=== PATIENT | female | born 1955 | race African-American/Black ===

== ENCOUNTER 2020-11-05 21:01 | Inpatient (IN) | payer OTHER ==
[~2020-11-05] VITALS: Ht 165.1 cm; Wt 66.2 kg
[~2020-11-05 21:01] MED LIST: ACETAMINOPHEN500 M1 PO; ATIVAN0.5 MG PO; BAYER CHEWABLE81 MG PO; CARVEDILOL12.5 MG PO; CARVEDILOL25 MG PO; CEFDINIR300 MG PO; CELEXA20 MG PO; CIPRO500 MG PO; CLARITIN10 MG PO; CLOPIDOGREL; COLACE100 MG PO; CYCLOBENZAPRINE5 MG PO; DEMADEX20 MG PO; DOXYCYCLINE 10100 MG PO; ELIQUIS5 MG PO; FAMCICLOVIR500 MG PO; FLAGYL500 MG PO; FLEXERIL; FLONASE 0.05%50 MCG NASAL; HUMALOG100 UNIT/1; HUMALOG100 UNIT/2 SUBQ; HYDROCODON-ACE1 EAC7 PO; HYDROCODONE-AP1 EAC6 PO; LANTUS; LANTUS100 UNIT/M SUBQ; LEVAQUIN 500 M500 M2 PO; LISINOPRIL20 MG PO; LOPRESSOR; LYRICA150 MG PO; LYRICA20 MG/1 ML PO; MAGOX 400400 MG PO; MYFORTIC180 MG PO; MYFORTIC360 MG PO; NOHOMEMEDICATIONS; NORCO 5-325 TA1 EAC1 PO; NORCO 5-325 TA1 EACH PO; NOVOLOG100 UNIT/1 SQ; ONDANSETRON HCL4 M2 PO; PERCOCET; PHOSLO667 MG; PLAVIX 75 MG TA75 M1 PO; PROBIOTIC1 EAC1 PO; PROGRAF1 MG PO; PROTONIX40 M1 PO; RENAVITE; SENSIPAR 30 MG30 M1; VICODIN 5-5001 EACH PO; ZOCOR40 MG PO; ZOFRAN ODT4 MG PO; ZOFRAN8 MG PO
[2020-11-05 21:03] VITALS: BP 176/80
[2020-11-05 21:20] LABS: BE(vivo) -6.2 mmol/L (-2 to +3); HCO3 20.6 mmol/L (22.0-26.0); PCO2 46.2 mmHg (35.0-45.0); PO2 90.1 mmHg (80.0-100.0); pH 7.267 (7.360-7.450); sO2 95.7 % (92.0-98.0)
--- NOTE | 2020-11-05 22:02 | NUR ---
CONTACTED [facility], PT IS A FULL CODE NURSE AT [facility] REPORTS THAT PT FAMILY HAS BEEN NOTIFIED
--- NOTE | 2020-11-05 22:28 | NUR ---
TALKED WITH DAUGHTER NORY, SHE IS DPOA, LIVES IN [place] [phone]
[2020-11-05 23:17] LABS: CALCIUM 8.9 mg/dL (8.5-10.1); CREATININE 0.9 mg/dL (0.6-1.0)
[2020-11-05 23:27] LABS: ALBUMIN 2.5 g/dL (3.4-5.0); DIRECT BILIRUBIN 0.1 mg/dL (<0.1-0.2); TOTAL BILIRUBIN 0.6 mg/dL (0.2-1.0); TOTAL PROTEIN 6.1 g/dL (6.4-8.2); TROPONIN-I 0.06 ng/mL (<0.06)
[2020-11-05 23:32] LABS: POTASSIUM 5.1 mmol/L (3.5-5.1)
[2020-11-06] VITALS (48 sets, daily range): BP systolic 122–166; BP diastolic 32–70
[2020-11-06 00:04] LABS: ABSOLUTE NEUTROPHILS 13.3 thou/uL (1.4-8.2); BASOPHILS 0.2 % (0.0-2.0); HEMATOCRIT 30.3 % (37.0-47.0); HEMOGLOBIN 9.2 gm/dL (12.0-15.0); LYMPHOCYTES 2.9 % (24.0-44.0); MCHC 30.4 g/dL (28.0-37.0); MCV 92.1 fL (80.0-100.0); PLATELET COUNT 266 thou/uL (150-400); POLYS 94.9 % (36.0-66.0); RBC 3.29 mil/uL (4.20-5.00); RDW 17.2 % (10.5-14.5)
[2020-11-06] MEDS ORDERED: NORVASC 2.5 MG2.5 M1 PO (04:23)
[2020-11-06] MEDS ORDERED: ENOXAPARIN40 MG/0.1 SUBQ (04:23)
[2020-11-06] MEDS ORDERED: ASA81BEC PO (04:23)
[2020-11-06] MEDS ORDERED: IRON325 M1 PO (04:24)
[2020-11-06] MEDS ORDERED: AMARYL2 M1 PO (04:24)
[2020-11-06] MEDS ORDERED: LANTUSSOLASTAR SUBQ (04:25)
[2020-11-06] MEDS ORDERED: HYDRALAZINE HC100 MG PO (04:25)
[2020-11-06] MEDS ORDERED: IPRAT-ALBUT 0.5-3 ML INH (04:26)
[2020-11-06] MEDS ORDERED: REMERON15 M2 PO (04:27)
[2020-11-06] MEDS ORDERED: MYCOPHENOLATE500 MG PO (04:28)
[2020-11-06] MEDS ORDERED: SERTRALINE HCL100 MG PO (04:29)
[2020-11-06] MEDS ORDERED: OLANZAPINE5 M1 PO (04:29)
[2020-11-06] MEDS ORDERED: VENTOLIN HFA 1818 GM INH ×2 (04:32→23:53)
--- NOTE | 2020-11-06 10:53 | HC ---
[facility] [place] [address] CONSULTATION Name: MARICRUZ CHONG Room #: [facility]- ADM IN M.Ayo.#: [id number] Admission: 11/06/20 Attend Phys: Shen Giron MD Discharge: Date of : 51 Report #: [id number] THIS REPORT FOR: cc: Bryn Smith MD, Christopher B. MD Barry,Marcin Zheng MD ~ DATE OF SERVICE: 11/06/2020 INFECTIOUS DISEASE CONSULTATION ATTENDING PHYSICIAN: Dr. Giron. REASON FOR EVALUATION: COVID-19 infection, complicated by pneumonitis and respiratory failure. HISTORY OF PRESENT ILLNESS: Chart reviewed, patient examined. This is a 65-year-old woman with extensive medical history, has diabetes mellitus and this has led to end-stage renal disease. She is post-kidney transplant. In addition to that, she has had widespread vasculopathy. She was evaluated in the Emergency Room due to appear to be increasing dyspnea. She was found to be hypoxic that required a nonrebreather. She apparently was encephalopathic with lethargy to somnolence. Apparently, did evaluate her and was found to have a positive COVID test previously and this was reconfirmed due to her increased oxygen requirements, now on BiPAP at 100% with marginal sats. She was admitted to the Intensive Care Unit. She has had issues with IV access as well. She did receive some empiric therapy with Levaquin, vancomycin and Zosyn have been ordered. She was found to have markedly elevated BNP of 27,800. Lactic acid was 1.6 and chest x-ray did show diffuse bilateral pulmonary infiltrates. She is not responsive at this point. ALLERGIES: IODINE and CODEINE. CURRENT MEDICATIONS: Prescribed enoxaparin, dexamethasone, famotidine, furosemide, metoprolol, Zosyn, p.r.n. analgesics, antiemetics, vancomycin. PAST MEDICAL HISTORY: As noted above, diabetes mellitus complicated by vasculopathy, has end-stage renal disease, post kidney transplant. She had previous bypass as well. She had a previous stroke, anxiety, depression, peripheral vascular disease with stenting. SOCIAL HISTORY: No ethanol. FAMILY HISTORY: Noncontributory. REVIEW OF SYSTEMS: Not obtainable. [facility] [address] [place] [address] CONSULTATION Name: MARICRUZ CHONG Room #: [address] [place] [address] IN Ayo.#: [id number] Admission: 11/06/20 Attend Phys: Shen Giron MD Discharge: Date of : 51 Report #: [id number] PHYSICAL EXAMINATION: GENERAL: She appears chronically ill, undernourished. She only arouses in terms of barely opening her eyes. There is no evidence she try to communicate, appears undernourished. She has not had fevers since she has been here. VITAL SIGNS: Pulse 91, respirations 46, blood pressure 166/69. SKIN: Warm, dry, no rashes. HEENT: Got BiPAP in place. NECK: Supple. LUNGS: Few scattered coarse breath sounds. HEART: Borderline tachycardic, regular. I do not appreciate a murmur. ABDOMEN: Mildly distended, soft, no apparent peritoneal signs. GENITOURINARY: Deferred. RECTAL: Deferred. LABORATORY DATA: As described above. BNP of 27,792. CBC: White count of 14.0, H and H 9.2 and 30.3, platelets of 266. BMP: Electrolytes; sodium 143, potassium 5.1, chloride 108, bicarbonate is 21, anion gap of 14, BUN and creatinine 18 and 0.9, glucose of 334. LFTs unremarkable. Albumin 2.5, total protein 6.1, estimated GFR 76. Lactic acid 1.6. Chest x-ray: Diffuse bilateral infiltrates. ABGs: pH 7.267, pCO2 of 46.2, pO2 of 90.1 that was on FiO2 of 100% BiPAP. ASSESSMENT AND PLAN: COVID-19 infection, complicated by pneumonitis and respiratory failure. It is difficult to ascertain whether this is a relatively new diagnosis in terms of the positive test or not. I have initiated empiric therapy with antibacterials, I think that is not unreasonable. She is critically ill. We will add remdesivir. Her issue is she has had difficult IV access and there has been a delay in starting these. She is not able to take oral and postpone any treatment for ivermectin. I guess she is not a candidate for intubation, so there is some discussion about more palliative approach. Thank you. We will follow. <ELECTRONICALLY SIGNED> By: Marcin Bailey MD 11/06/20 1053 [id number] [id number] Marcin Bailey MD /nt
--- NOTE | 2020-11-06 12:22 | NUR ---
VAT CONSULTED FOR AN IJ FOR THIS PT WITH ABX AND POSSIBLE PRESSORS. PT HAS A LT ARM FISTULA AND A KIDNEY TRANSPLANT. A 4FRDL IJ PLACED RT SIDE, CXR REVEALS TIP AT THE CAJ. LINE RELEASED FOR USE
[2020-11-06 15:31] LABS: HEMATOCRIT 26.7 % (37.0-47.0); HEMOGLOBIN 8.2 gm/dL (12.0-15.0); MCH 28.1 pg (26.0-34.0); MCHC 30.6 g/dL (28.0-37.0); MCV 91.8 fL (80.0-100.0); RBC 2.91 mil/uL (4.20-5.00); RDW 17.2 % (10.5-14.5)
[2020-11-06 15:51] LABS: POTASSIUM 4.6 mmol/L (3.5-5.1); TROPONIN-I 0.17 ng/mL (<0.06)
--- NOTE | 2020-11-06 18:06 | NUR ---
KIMBERLY SET UP WITH DAUGHTER, NORY, AT 1123 THIS MORNING. NORY CALLED TO RECEIVE UPDATE AT 1800. REASSURANCES AND EMOTIONAL SUPPORT PROVIDED.
--- NOTE | 2020-11-06 18:18 | NUR ---
PT REMAINS ON BIPAP, AWAKENS TO VOICE AND FOLLOWS COMMANDS. VS REMAIN STABLE, URINE OUTPUT HAS BEEN ADEQUATE. RIJ DOUBLE LUMEN CENTRAL LINE NEWLY PLACED TODAY. NORY, PT'S DAUGHTER, LIVES IN [place] AND CALLS ABOUT ONCE PER SHIFT TO GET UPDATE. SHE PREFERS NOT TO FACETIME, BUT TO TALK TO HER MOTHER VIA PHONE, WITH PHONE PLACED TO PT'S EAR. NORY HAS EXPRESSED A REALISTIC BUT HOPEFUL UNDERSTANDING OF PT'S CONDITION. PT OVERALL IS SLOWLY PROGRESSING TOWARD GOALS.
[2020-11-06] MEDS ORDERED: TYLENOL325 MG PO (23:48)
[2020-11-06] MEDS ORDERED: ATORVASTATIN CA80 MG PO (23:49)
[2020-11-06] MEDS ORDERED: MIRALAX119 GM PO (23:53)
[2020-11-06] MEDS ORDERED: PROBIOTIC250 MG PO (23:53)
[2020-11-06] MEDS ORDERED: ONDANSETRON HCL4 M2 PO (23:54)
[2020-11-07] VITALS (21 sets, daily range): BP systolic 103–186; BP diastolic 39–87
[2020-11-07 04:58] LABS: ALBUMIN 1.9 g/dL (3.4-5.0); CALCIUM 8.9 mg/dL (8.5-10.1); CREATININE 1.1 mg/dL (0.6-1.0); PHOSPHORUS 2.8 mg/dL (2.6-4.7)
[2020-11-07 05:08] LABS: ALBUMIN 1.9 g/dL (3.4-5.0); DIRECT BILIRUBIN 0.2 mg/dL (<0.1-0.2); TOTAL BILIRUBIN 0.9 mg/dL (0.2-1.0)
--- NOTE | 2020-11-07 06:18 | NUR ---
Patient restless in the beginning of the night. Calms wiht turning/repositioning. About 0100, Patient became more restless and pulling at bipap. Patient tachypneic. Orders for morphine. Patient slept for about 45 minutes. 0200 patient very restless, pulling bipap off, pinching, very strong. Orders for restraints and Haldol. With Bipap off, patient quickly desats into the low 80's. Patient clearly requiring use of bipap to maintain current status. Spoke with daughter Charlene. Gave update on patient condition. Patient is progressing towards plan of care and goals. See documentation on interventions for assessment details.
[2020-11-07 09:01] LABS: PCO2 40.8 mmHg (35.0-45.0); PO2 69.2 mmHg (80.0-100.0); pH 7.323 (7.360-7.450)
[2020-11-07 09:02] LABS: HCO3 20.7 mmol/L (22.0-26.0); sO2 92.6 % (92.0-98.0)
--- NOTE | 2020-11-07 09:23 | EKG ---
[place] [address] [facility] [place] [address] ELECTROCARDIOGRAM REPORT Name: DINORAH CHONGRADHA Room #: 244-P ADM IN M.R.#: [id number] Admission: 11/06/20 Attend Phys: Danika Salinas Discharge: Date of : 51 Report #: [id number] [facility] Test Date: 2020-11-07 Test Time: 08:48:29 Pat Name: MARICRUZ CHONG Department: Room: 244 P Gender: F Senior Research Scientist: EVANGELISTA : 1955 Requested By: Juanita Tejeda Order Number: [id number] : Tee Taveras Measurements Intervals [place] Rate: 71 P: 36 IN: 147 QRS: -24 QRSD: 118 T: 231 QT: 532 QTc: 579 Interpretive Statements Sinus rhythm Low voltage, extremity leads LVH with secondary repolarization abnormality Prolonged QT interval No previous ECG available for comparison Electronically Signed On 11-07-2020 9:22:53 SECURITY LEAD by Tee Taveras [email or web address] <ELECTRONICALLY SIGNED> By: Tee Taveras MD, [facility] 11/07/2022 0848 0848 Tee Taveras MD, FACC /EPI
--- NOTE | 2020-11-07 09:33 | NUR ---
ASSUMED CARE OF PATIENT AT 0700. DR. DAILEY AT BEDSIDE AT 0830, NO NEW ORDERS GIVEN. DR. YOON AT BEDSIDE AT 0911, NO NEW ORDERS GIVEN.
--- NOTE | 2020-11-07 09:50 | HC ---
[facility] [place] [address] CONSULTATION Name: MARICRUZ CHONG Room #: [address] [place] [address] IN M.R.#: [id number] Admission: 11/06/20 Attend Phys: Danika Salinas Discharge: Date of : 51 Report #: [id number] THIS REPORT FOR: cc: Bryn Smith MD, Christopher B. MD Park, Jin S. MD ~ DATE OF SERVICE: 11/06/2020 INDICATION: CHF. HISTORY OF PRESENT ILLNESS: This is a 65-year-old female with a history of recent COVID infection, end-stage renal disease, status post kidney transplant, mood disorder, CABG, CVA, neuroendocrine tumor, diabetes mellitus, peripheral arterial disease, who presents from the intermediate with respiratory distress. The patient was placed on a nonrebreather. We are asked to evaluate for an elevated BNP greater than 20,000. She has no prior history of heart failure. She was admitted to the ICU and was on pressor support, which has been titrated off. The patient is minimally arousable, not able to answer any questions. ALLERGIES: CODEINE, IODINE. MEDICATIONS: Include insulin, Prograf, Myfortic, Plavix, simvastatin, Coreg, Eliquis. SOCIAL HISTORY: Negative tobacco use. FAMILY HISTORY: Negative for premature CAD. REVIEW OF SYSTEMS: Unobtainable. PHYSICAL EXAMINATION: VITAL SIGNS: Blood pressure is 120/70, heart rate is 70 beats per minute. GENERAL APPEARANCE: Elderly appearing female, minimally arousable. HEENT: Normocephalic, atraumatic. NECK: Supple. LUNGS: Diminished breath sounds at the bases. CARDIAC: S1, S2 positive. ABDOMEN: Soft, nontender. EXTREMITIES: Positive edema, no cyanosis. LABORATORY VALUES: White count is 14.0, hemoglobin is 9.2. Troponin 0.06. ProBNP is 27,792. ASSESSMENT AND PLAN: 1. COVID/pneumonitis, continue antibiotics. [facility] [address] [place] [address] CONSULTATION Name: MARICRUZ CHONG Room #: [address] [place] [address] IN [facility].#: [id number] Admission: 11/06/20 Attend Phys: Danika Salinas Discharge: Date of : 51 Report #: [id number] 2. Elevated proBNP, rule out congestive heart failure. No prior history. Agree with gentle diuresis. Await echo findings. 3. History of coronary artery bypass grafting, troponin level was negative. The patient is nonverbal at this time. 4. History of renal transplant. 5. Peripheral arterial disease. <ELECTRONICALLY SIGNED> By: Maikel Reyes MD 11/07/20 0950 1042 1407 Maikel Reyes MD /nt
--- NOTE | 2020-11-07 12:33 | NUR ---
WOUND CONSULT; BRUISING CONSISANT WITH A PRESSURE INJURY (STAGE 2). NO S/S OF INFECTION. TIFFANIE IS 1.9. RECOMMENDATIONS; 1-APPLY ZGUARD TID/PRN 2-Q2H TURNING 3-LOW AIR LOSS PUMP, DISCUSSED WITH RN
--- NOTE | 2020-11-07 14:31 | NUR ---
Case opened to follow for support and dc planning. Pt is currently in ICU covid+ and on bipap. Case discussed with the care team, Pt's dtr/dpoa Charlene and the [facility] liason. The pt admitted from [facility] due to respiratory failure and had tested Covid + several days before at [facility] where she had been rehabing for approx 3-4 weeks. [facility] transfered her to [facility]'s Covid unit to continue her skilled rehab. [facility] to fax a copy of the pt's DPOA document for her chart. They note her dtr Charlene is her primary dpoa and she had been staying with her in [place] prior to her coming to visit her son Mark in [place]. Charlene reports that the pt had a hx of kidney transplant and most recently several bouts of aspiration pneumonia. Nursing has updated Charlene and will notify the attending that Charlene would like a physician call to discuss her prior respiratory issues. The pt is a DNR. Charlene is anticipating the pt will return to [facility] SNF at ar. She is realistic about her overall condition and aware she may not do well. Support provided and cm role introduced. Dc technical planner to fax an update to [facility] as they are holding her bed. Will follow.
--- NOTE | 2020-11-07 16:53 | NUR ---
FAXED CLINICAL UPDATE TO [facility] RECEIVED CONFIRMATION AND LEFT MSG WITH ADM. DP TO FOLLOW.
--- NOTE | 2020-11-07 17:18 | NUR ---
PT'S DAUGHTER REQUESTING TO TALK WITH DR DA SILVA. SPOKE WITH DR DA SILVA AT 1718 AND HE WAS NOTIFIED OF THE REQUEST AND GIVEN NUMBER OF DAUGHTER NORY.
[2020-11-08] VITALS (25 sets, daily range): BP systolic 132–179; BP diastolic 44–69
[2020-11-08 05:34] LABS: ABSOLUTE NEUTROPHILS 9.8 thou/uL (1.4-8.2); HEMOGLOBIN 8.4 gm/dL (12.0-15.0); LYMPHOCYTES 3.1 % (24.0-44.0); MCH 27.8 pg (26.0-34.0); MCHC 31.3 g/dL (28.0-37.0); MONOCYTES 3.4 % (1.0-8.0); PLATELET COUNT 220 thou/uL (150-400); POLYS 93.5 % (36.0-66.0); RBC 3.03 mil/uL (4.20-5.00); RDW 16.8 % (10.5-14.5); WBC 10.5 thou/uL (4.0-11.0)
[2020-11-08 05:44] LABS: ALBUMIN 2.1 g/dL (3.4-5.0); DIRECT BILIRUBIN 0.2 mg/dL (<0.1-0.2); PHOSPHORUS 2.9 mg/dL (2.5-4.9); POTASSIUM 3.3 mmol/L (3.5-5.1); TOTAL BILIRUBIN 0.6 mg/dL (0.2-1.0)
[2020-11-08 05:46] LABS: TOTAL PROTEIN 7.9 g/dL (6.4-8.2)
--- NOTE | 2020-11-08 05:55 | NUR ---
Patient continues on Bipap. Unable to titrate FIO2 due to desat into the 60's. with oral care. Patient was very restless this evening, pulling at restraints, yelling and appeared very uncomfortable. Gave bath and back rub with warm blankets but this did not help. Dose of haldol given. Patient continued to be very restless, tachypneic and tachycardic. Called Dr. Gomez. Updated [facility] patient condition. Orders for ativan received. 1 mg given and patient was able to rest and vital signs returned to normal. Patient again restless this am. Another 1 mg ativan given. Heart rate and rhythem stable. Blood pressures stable. Adequate u/o. T max 99.6 ax. Am labs drawn and sent. NO family called this shift. See documentation on interventions for assessment details. Patient is not progressing towards goals.
--- NOTE | 2020-11-08 07:15 | EKG ---
[facility] [place] [address] ELECTROCARDIOGRAM REPORT Name: MARICRUZ CHONG Room #: 244-P ADM IN M.R.#: [id number] Admission: 11/06/20 Attend Phys: Danika Salinas Discharge: Date of : 51 Report #: [id number] [facility] ED Test Date: 2020-11-05 Test Time: 21:06:01 Pat Name: MARICRUZ CHONG Department: Room: 244 Gender: F Drain Cleaner Plumber: : 1955 Requested By: Cecily Swann Order Number: [id number] MD: Tee Taveras Measurements Intervals [place] Rate: 98 P: 20 UT: 157 QRS: -32 QRSD: 101 T: 50 QT: 366 QTc: 468 Interpretive Statements Sinus rhythm Probable left atrial enlargement Left axis deviation Low voltage, extremity leads Borderline ST depression, lateral leads No previous ECG available for comparison Electronically Signed On 11-08-2020 7:15:15 RECREATION FACILITY ATTENDANT by Tee Taveras [email or web address] <ELECTRONICALLY SIGNED> By: Tee Taveras MD, [facility] 11/08/20 0715 2106 05 Tee Taveras MD, FACC /EPI
--- NOTE | 2020-11-08 13:40 | NUR ---
PT SEEN TODAY BY //RT PT HAS BEEN RUNNING HYPERTENSIVE THIS MRONING ACCOMPANIED BY INCREASED RESPIRATORY RATE/HR. ATIVAN WAS GIVEN, NOT VERY EFFECTIVE AT DECREASING THE RR, WAS CONSULTED BY RN AND ASKED IF PALL CONSULT OR PAIN MEDCATION PRN WAS WARRANTED. MORPHINE WAS ORDERED, IV PUSH WAS PROVIDED, HR/RR DECREASED BUT HYPERTENSION STILL PRESENT SBP >165. METOPROLO IV PUSH SCHEDULED GIVEN. PT IS LETHARGIC DOES NOT RESPOND TO VERBAL STIMULI. POTASSIUM 20MEQ ADMN FOR 3.3K, STILL ON BIPAP, INCREASE OF IPAP FROM 14 TO 16. PT IS NOT PROGRESSING TOWARDS DISCHARGE AT THIS TIME EVIDENCED BY HYPERTENSION/RESPIRATORY DISCOMFORT W/O IV MEDICATION, AND NO IMPROVEMENT IN LOC. CONTINUING TO MONITOR AND WILL UPDATE NECESSARY
--- NOTE | 2020-11-08 20:38 | NUR ---
ASSUMED CARE 1899. PT ALERT TO SELF, SAID "HI", SQUEEZED FINGERS ON COMMAND. RELEASED RESTRAINTS PER POLICY; PT MOVING ARMS TOWARDS TELE STICKERS BUT NOT PULLING ANYTHING OFF. OVER A FEW MINUTES, PT MORE AGITATED, SAYING "HELP ME." GAVE DOSE MORPHINE, RR NOW LOWER AND PT RESTING COMFORTABLY.
[2020-11-09] VITALS (22 sets, daily range): BP systolic 0–166; BP diastolic 0–71
[2020-11-09 06:44] LABS: ALBUMIN 1.9 g/dL (3.4-5.0); CALCIUM 8.5 mg/dL (8.5-10.1); CREATININE 0.9 mg/dL (0.6-1.0); DIRECT BILIRUBIN 0.2 mg/dL (<0.1-0.2); PHOSPHORUS 3.6 mg/dL (2.5-4.9); POTASSIUM 4.2 mmol/L (3.5-5.1); TOTAL BILIRUBIN 0.6 mg/dL (0.2-1.0); TOTAL PROTEIN 5.1 g/dL (6.4-8.2)
--- NOTE | 2020-11-09 11:39 | NUR ---
SPOKE WITH PT'S DPOA NORY REGARDING GOALS OF CURRENT CARE AND THE DIRECTION FOR PT'S CARE. PER DPOA, THE CURRENT PLAN IS TO MOVE FORTH AND WITHDRAW/PALLIATIVE CARE AT 1830. AT THAT TIME PT'S FAMILY MEMBERS (DPOA/TWO BROTHERS/UNCLE/AUNT/SISTER IN LAW) WILL ARRIVE TO THE ED AND SAY THEIR FAREWELL. DPOA VERBALIZED UNDERSTANDING OF COMING IN PAIRS, NOT ENTERING THE ROOM, AND HAVING MAXIMUM OF TEN MINUTES OUTSIDE. THE FACILITY ARRANGED FOR THE PT IS [facility], THEIR NUMBER BEING DISCUSSED THIS PLAN WITH THE DENTURE LABORATORY TECHNICIAN, AND FEMI IS IN AGREEANCE WITH THE PLAN
--- NOTE | 2020-11-09 14:09 | NUR ---
FAXED CLINICAL UPDATE TO [facility] SPOKE WITH ANGELA IN ADM SHE RECEIVED UPDATE. DP TO FOLLOW.
--- NOTE | 2020-11-09 22:50 | NUR ---
PLANNED TO WITHDRAW CARE PER DPOA REQUEST. DPOA AND BROTHER ED CAME TO ICU. NURSE ESCORTED THEM TO PT'S ROOM WHERE THEY WERE GIVEN A PHONE AND ALLOWED TO STAND OUTSIDE THE GLASS DOORS PER HOSPITAL PROTOCOL. NURSE ENTERED ROOM AND CALLED THE PHONE THAT WAS GIVEN TO FAMILY MEMBERS AND PLACED PHONE ON SPEAKER SO PT COULD HEAR HER FAMILY SAY THEIR GOODBYES. PER ORDERED, NURSE GAVE MORPHINE, REMOVED BIPAP MASK, AND PLACED 2L OXYGEN PER NASAL CANNULA. FAMILY REMAINED BY THE PT'S ROOM FOR A WHILE AND THEN NOTIFIED NURSE THAT THEY WOULD BE LEAVING AND TO CALL THEM WHEN SHE PASSED. ANOTHER NURSE ESCORTED PT'S FAMILY OFF UNIT. THIS NURSE STAYED AT PT'S BEDSIDE; GAVE PRN MORPHINE AND ATIVAN NEEDED FOR PT'S COMFORT. NURSE HELD PT'S HAND AND SPOKE COMFORTING WORDS TO HER UNTIL SHE AT 2116. 2116 ORDERED, 2 NURSES PRONOUNCED . TELEMETRY STRIP OF ASYTOLE PRINTED. PLACED ON CHART. 2126 NOTIFIED TECHNOLOGY PROFESSIONAL JM OF PT 2134 NOTIFIED ADMITTING PHYSICIAN'S CAPACITY MANAGER OF PT . DR DENSON WILL SIGN CERTIFICATE. PT WAS PREVIOUSLY IN RESTRAINTS; RESTRAINTS WERE REMOVED 11/08 @ 2029. 2137 ATTEMPTED TO NOTIFY DPOA NORY OF PT . PHONE WENT DIRECTLY TO VOICEMAIL; VOICEMAIL BOX WAS FULL; UNABLE TO LEAVE CALL BACK NUMBER. 2138 CALLED AND SPOKE TO PT'S SON KIM VIA PHONE. NOTIFIED HIM OF PT'S TIME OF AND REASSURED HIM THAT PT DID NOT ALONE. HE THANKED NURSE FOR CARE. HE NOTIFIED HIS FAMILY MEMBERS. 2142 NOTIFIED SPIRITUAL CARE OF PT . LEFT MESSAGE ON VOICEMAIL. 2144 NOTIFIED MTN OF PT . REFERRAL NUMBER [id number]. PT IS NOT A CANDIDATE FOR DONATION. PT IS COVID 19 POSITIVE. PT HAS A CENTRAL LINE IN; LEFT IN PLACE. IDENTIFICATION ARM BAND IN PLACE. CLEANED PT'S BODY AND PLACED IN SHROUD. NO BELONGINGS PRESENT AT BEDSIDE. CALLED SECURITY TO COME FOR BODY. [facility] [phone]
== END 2020-11-09 21:17 | DRG 177 ==
LOC: ER 21:01 → EROBS 11-06 00:32 → ICU 11-06 00:32
PROVIDERS: Emergency Medicine; Nurse Practitioner Family; Specialist; ADMIT Hospitalist; ATTEND Hospitalist
PROC: 02HV33Z Insertion of Infusion Device into Superior Vena Cava, Percutaneous Approach (ICD-10-PCS; principal; 2020-11-06)
PROC: 5A09457 Assistance with Respiratory Ventilation, 24-96 Consecutive Hours, Continuous Positive Airway Pressure (ICD-10-PCS; principal; 2020-11-06)
PROC: XW033E5 Introduction of Remdesivir Anti-infective into Peripheral Vein, Percutaneous Approach, New Technology Group 5 (ICD-10-PCS; principal; 2020-11-06)
DX: U07.1 COVID-19 (principal); N18.6 End stage renal disease; J12.9 Viral pneumonia, unspecified; J96.21 Acute and chronic respiratory failure with hypoxia; J96.22 Acute and chronic respiratory failure with hypercapnia; I47.1 Supraventricular tachycardia; E87.0 Hyperosmolality and hypernatremia; D84.9 Immunodeficiency, unspecified; Z94.0 Kidney transplant status; I69.351 Hemiplegia and hemiparesis following cerebral infarction affecting right dominant side; I13.2 Hypertensive heart and chronic kidney disease with heart failure and with stage 5 chronic kidney disease, or end stage renal disease; I50.9 Heart failure, unspecified; I25.10 Atherosclerotic heart disease of native coronary artery without angina pectoris; F32.9 Major depressive disorder, single episode, unspecified; F41.9 Anxiety disorder, unspecified; E10.22 Type 1 diabetes mellitus with diabetic chronic kidney disease; D64.9 Anemia, unspecified; Z66 Do not resuscitate; G30.9 Alzheimer's disease, unspecified; F02.80 Dementia in other diseases classified elsewhere, unspecified severity, without behavioral disturbance, psychotic disturbance, mood disturbance, and anxiety; Z51.5 Encounter for palliative care; E10.51 Type 1 diabetes mellitus with diabetic peripheral angiopathy without gangrene; Z95.1 Presence of aortocoronary bypass graft; Z90.49 Acquired absence of other specified parts of digestive tract; Z95.820 Peripheral vascular angioplasty status with implants and grafts; Z88.6 Allergy status to analgesic agent; Z91.041 Radiographic dye allergy status; Z79.4 Long term (current) use of insulin; Z82.49 Family history of ischemic heart disease and other diseases of the circulatory system; Z82.3 Family history of stroke
CPT/HCPCS: 10078